=== PATIENT | female | born 1975 | race Caucasian/White ===

== ENCOUNTER 2018-09-18 12:43 | Emergency (ER) | payer BC ==
[2018-09-18 13:18] LABS: ABS Basophils 0 10^3/ul (0-0.2); ABS Eosinophils 0.2 10^3/ul (0-0.6); ABS Monocytes 0.6 10^3/ul (0-0.8); ABS Neutrophils 4.5 10^3/ul (1.5-7.7); ABS Nucleated RBC 0 10^3/ul; Eosinophil % 3.4 % (0-6); Hematocrit 40 % (35-47); Hemoglobin 13.9 g/dl (12.0-16.0); Lymphocyte % 26.8 % (25-47); Mean Corpuscular HGB Conc 34 g/dl (31-36); Mean Corpuscular Hemoglobin 31 pg (27-31); Mean Corpuscular Volume 91 fL (80-97); Mean Platelet Volume 8.1 fL (7.4-10.4); Nucleated Red Blood Cells % 0.1; Platelet Count 272 10^3/ul (150-450); Red Blood Count 4.45 10^6/ul (4.00-5.40); Red Cell Distribution Width 12 % (10.5-15); White Blood Count 7.3 10^3/ul (3.5-10.8)
--- NOTE | 2018-09-18 13:26 | ED ---
Abdominal Pain/Female - HPI Summary HPI Summary: Pt is a 43 y/o female who presents to the ED c/o abdominal pain. She couldnt get in to see her GI physician today, so they referred her to the ER for a possible pancreatitis. Pt has IBS, and recently finished medication for SIBO. 2 days ago, the gas pain and bloating returned. Pt now reports 6/10 upper abdominal pain. She also states shes have fatty stool for the past 6 months. Pt denies any hx of pancreatitis, Crohns, or colitis. She denies any fever, chills, urinary symptoms, or bloody stool. FHx pancreatitis and gall bladder disease. She is lactose intolerant and has been eating gluten free, and denies any possibility of ingesting dairy or gluten. - History of Current Complaint Chief Complaint: EDAbdPain Stated Complaint: ABD PAIN Time Seen by Provider: 09/18/18 12:50 Hx Obtained From: Patient Onset/Duration: Gradual Onset, Lasting Days - 2, Still Present Timing: Constant Severity Currently: Moderate Pain Intensity: 6 Pain Scale Used: 0-10 Numeric Location: Discrete At: RUQ, Discrete At: LUQ Radiates: No Character: Other: - Bloating Alleviating Factor(s): Nothing Associated Signs and Symptoms: Negative: Fever, Blood in Stool Allergies/Adverse Reactions: Allergies Allergy/AdvReac Type Severity Reaction Status Date / Time lactase [From Dairy Aid] Allergy GI Upset Verified 09/18/18 12:47 Home Medications: Home Medications Cholestyramine Resin* [Questran*] 4 gm PO DAILY 09/18/18 [History Confirmed ] PMH/Surg Hx/FS Hx/Imm Hx Cardiovascular History: Reports: Hx Hypercholesterolemia - Borderline GI History: Reports: Other GI Disorders - Hemorrhoids Denies: Hx Crohn's Disease Musculoskeletal History: Reports: Hx Arthritis - Cancer History Hx Chemotherapy: No Hx Radiation Therapy: No Infectious Disease History: No Infectious Disease History: Denies: Traveled Outside the [place] in Last 30 Days - Family History Known Family History: Positive: Other - gall bladder disease, pancreatitis - Social History Hx Substance Use: No Substance Use Type: Reports: None Hx Tobacco Use: No Smoking Status (MU): Never Smoked Tobacco Review of Systems Negative: Fever, Chills Positive: Abdominal Pain. Negative: Other - bloody stool Genitourinary: Negative All Other Systems Reviewed And Are Negative: Yes Physical Exam - Summary Physical Exam Summary: Appearance: Well appearing, no pain distress Skin: warm, dry, reflects adequate perfusion Head/face: normal Eyes: EOMI, BALJEET ENT: mucous membranes moist Neck: supple, non-tender Respiratory: CTA, breath sounds present Cardiovascular: RRR, pulses symmetrical Abdomen: non-tender, soft Bowel Sounds: present Musculoskeletal: normal, strength/ROM intact Neuro: normal, sensory motor intact, A&Ox3 Triage Information Reviewed: Yes Vital Signs On Initial Exam: Initial Vitals Temp Pulse Resp BP Pulse Ox 97.0 F 87 15 134/70 97 09/18/18 12:43 09/18/18 12:43 09/18/18 12:43 09/18/18 12:43 09/18/18 12:43 Vital Signs Reviewed: Yes Diagnostics - Vital Signs Vital Signs Temp Pulse Resp BP Pulse Ox 09/18/18 12:43 97.0 F 87 15 134/70 97 - Laboratory Lab Results: Lab Results 09/18/18 Range/Units 13:07 WBC 7.3 (3.5-10.8) 10^3/ul RBC 4.45 (4.00-5.40) 10^6/ul Hgb 13.9 (12.0-16.0) g/dl Hct 40 (35-47) % MCV 91 (80-97) fL MCH 31 (27-31) pg MCHC 34 (31-36) g/dl RDW 12 (10.5-15) % Plt Count 272 (150-450) 10^3/ul MPV 8.1 (7.4-10.4) fL Neut % (Auto) 61.0 (38-83) % Lymph % (Auto) 26.8 (25-47) % [place] % (Auto) 8.3 H (0-7) % Eos % (Auto) 3.4 (0-6) % Baso % (Auto) 0.5 (0-2) % Absolute Neuts (auto) 4.5 (1.5-7.7) 10^3/ul Absolute Lymphs (auto) 2.0 (1.0-4.8) 10^3/ul Absolute Monos (auto) 0.6 (0-0.8) 10^3/ul Absolute Eos (auto) 0.2 (0-0.6) 10^3/ul Absolute Basos (auto) 0 (0-0.2) 10^3/ul Absolute Nucleated RBC 0 10^3/ul Nucleated RBC % 0.1 Result Diagrams: 09/18/18 13:07 09/18/18 13:07 Lab Statement: Any lab studies that have been ordered have been reviewed, and results considered in the medical decision making process. Re-Evaluation - Re-Evaluation First Eval Re-Evaluation Time: 14:05 Change: Improved Comment: Pt feels better. Abdominal Pain Fem Course/Dx - Course Course Of Treatment: Patient with a history of irritable bowel syndrome, lactose intolerance presents with fatty sheen to her loose stools. This is a chronic part of her IBS. She has also had increased bloating and some epigastric discomfort. LFTs, lipase are normal. Stearrhea likely resulting from cholestyramine. Refer back to primary care physician, GI. - Diagnoses Differential Diagnosis: Positive: Irritable Bowel Syndrome, Pancreatitis - Medication reaction, gastritis, Other Provider Diagnoses: IBS (irritable bowel syndrome), Medication side effect Discharge - Sign-Out/Discharge Documenting (check all that apply): Patient Departure - Discharge - Discharge Plan Condition: Improved Disposition: HOME Prescriptions: Hyoscyamine Sulfate 0.125 mg SL Q4H PRN #30 tab.subl PRN Reason: abdominal cramping Patient Education Materials: Irritable Bowel Syndrome (ED) Referrals: Obed Lawson MD [Medical Doctor] - Mariano Mcdaniel MD [Primary Care Provider] - Additional Instructions: Your Cholestyramine may be producing fatty stools. Ashley, low-fat diet may help. Call your GI doctor Friday prompt follow-up. Return if worse, fevers, new symptoms or other concerns. - Billing Disposition and Condition Condition: IMPROVED Disposition: Home - Attestation Statements Document Initiated by Scribe: Yes Documenting Scribe: Nicky Raines Provider For Whom Maral is Documenting (Include Credential): Michael Mojica MD Scribe Attestation: Nicky Caballero, scribed for Michael Mojica MD on 09/18/18 at 1749. Scribe Documentation Reviewed: Yes Provider Attestation: The documentation as recorded by the Nicky gray accurately reflects the service I personally performed and the decisions made by me, Michael Mojica MD
[2018-09-18 13:36] LABS: EGFR Non-African American 89.3 (>60)
[2018-09-18 14:03] LABS: Urine Appearance Clear; Urine Blood Negative (Negative); Urine Color Straw; Urine Ketones Negative (Negative); Urine Protein Negative (Negative); Urine Specific Gravity 1.004 (1.010-1.030); Urine Urobilinogen Negative (Negative)
[2018-09-18 14:21] VITALS: BP 125/76
== END 2018-09-18 14:19 | disposition home or self-care (01) ==
LOC: ED 12:43
DX: K58.9 Irritable bowel syndrome, unspecified (principal); R19.5 Other fecal abnormalities; R10.11 Right upper quadrant pain; R10.12 Left upper quadrant pain; T50.905A Adverse effect of unspecified drugs, medicaments and biological substances, initial encounter; Y92.9 Unspecified place or not applicable
CPT/HCPCS: 36415; 80053; 81003; 83605; 83690; 85025; 86140; 99282